=== PATIENT | male | born 1990 | race African-American/Black ===

== ENCOUNTER 2025-01-30 12:06 | Emergency (ER) | payer MEDICAID ==
[~2025-01-30] VITALS: Ht 177.8 cm; Wt 72.0 kg
[~2025-01-30 12:06] MED LIST: BENZ0.5T6; CLON0.1T; DIAZ10TA66; LAMO150T2; METO-281; PAROXETINE; QUET100T38; TRAZ-227; ZIPR40CA8; [UNRECOGNIZED DRUG - CODE]
--- NOTE | 2025-01-30 13:11 | ED.PDOC ---
GI ASSESSMENT HPI Comments 34 year old male presents to the ED with a chief compliant of vomiting onset last night. Per legal guardian, patient is currently at a Boarding Care facility, noticed patient began shoving his hand in his mouth causing him to vomit. Guardian states mother was concerned, requested patient to be brought to ED. Mother told guardian patient experienced similar episode a few years ago, had swallowed an orange. Patient is nonverbal, baseline according to guardian. No other symptoms or modifying factors present at this time. Chief Complaint: Nausea/Vomiting Time Seen by MD: 13:00 Reviewed Notes: Medications, Allergies Allergies: Coded Allergies: NO KNOWN ALLERGIES (Unverified , 06/20/10) Home Meds Reported Medications Diazepam (Valium) 10 Mg Tab, BID 06/20/10 Trazodone Hcl (Trazodone Hcl) 50 Mg Tab, HS 06/20/10 Clorazepate Dipotassium (Tranxene T) 3.75 Mg Tab, TID 06/20/10 Quetiapine Fumerate (Seroquel) 100 Mg Tab, BID 06/20/10 Metoclopramide Hcl (Reglan) 10 Mg Tab, QID 06/20/10 [Paroxetine] 10 MG No Conflict Check, BID 06/20/10 Lamotrigine (Lamictal) 150 Mg Tab, BID 06/20/10 Ziprasidone Hydrochloride (Geodon) 40 Mg Cap, BID 06/20/10 Benztropine Mesylate (Cogentin) 0.5 Mg Tb, BID 06/20/10 Clonidine Hydrochloride (Clonidine Hcl) 0.1 Mg Tab, BID 06/20/10 Information Source: Legal Guardian Mode of Arrival: Wheelchair Timing: Days Duration: Since onset Prehospital treatment: None Quality: None Severity: Moderate Recent: None Recent Hx of: None Associated sign and symptoms: Nausea, Vomiting Past Medical History Surgical History: Denies all surgeries Family History Family History: Reviewed,noncontributory to illness, No family hx of Cancer, No family hx of DM, No family hx of Heart kamari, No family hx of HTN, No family hx ofKidney kamari, No family hx of Liver kamari, No family hx of Lung kamari, No family hx of Stroke Social History Smoker: Non-Smoker Alcohol: Denies ETOH Use Drugs: Denies Drug Use Lives In: Home Constitutional: denies: chills, diaphoresis, fatigue, fever, malaise, sweats, weakness, others EENTM: denies: blurred vision, double vision, ear bleeding, ear discharge, ear drainage, ear pain, ear ringing, eye pain, eye redness, hearing loss, mouth pain, mouth swelling, nasal discharge, nose bleeding, nose congestion, nose pain, photophobia, tearing, throat pain, throat swelling, voice changes, others Respiratory: denies: cough, hemoptysis, orthopnea, SOB at rest, shortness of breath, SOB with excertion, stridor, wheezing, others Cardiovascular: denies: chest pain, dizzy spells, diaphoresis, Dyspnea on exertion, edema, irregular heart beat, left arm pain, lightheadedness, palpi tations, PND, syncope, others Gastrointestinal: reports: nausea, vomiting; denies: abdomen distended, abdominal pain, blood streaked bowels, constipated, diarrhea, dysphagia, difficulty swallowing, hematemesis, melena, poor appetite, poor fluid intake, rectal bleeding, rectal pain, others Genitourinary: denies: burning, dysuria, flank pain, frequency, hematuria, incontinence, penile discharge, penile sore, pain, testicle pain, testicle swelling, urgency, others Neurological: denies: dizziness, fainting, headache, left sided numbness, left sided weakness, numbness, paresthesia, pre-existing deficit, right sided numbness, right sided weakness, seizure, speech problems, tingling, tremors, weakness, others Musculoskeletal: denies: back pain, gout, joint pain, joint swelling, muscle pain, muscle stiffness, neck pain, others Integumetry: denies: bruises, change in color, change in hair/nails, dryness, laceration, lesions, lumps, rash, wounds, others Allergic/Immunocompromised: denies: Difficulty Healing, Frequent Infections, Hives, Itching, others Hematologic/Lymphatic: denies: anemia, blood clots, easy bleeding, easy bruising, swollen glands, others Endocrine: denies: excessive hunger, excessive sweating, excessive thirst, excessive urination, flushing, intolerance to cold, intolerance to heat, unexpla ined weight gain, unexplained weight loss, others Psychiatric: denies: anxiety, bipolar disorder, depression, hopeless, panic disorder, schizophrenia, sleepless, suicidal, others All Other Systems: Reviewed and Negative Physical Exam General Appearance: Normal HEENT: Normal ENT Inspection, Pharynx Normal, TMs Normal Neck: Full Range of Motion, Non-Tender, Normal, Normal Inspection Respiratory: Chest Non-Tender, Lungs Clear, No Accessory Muscle Use, No Respiratory Distress, Normal Breath Sounds Cardiovascular: No Edema, No JVD, No Murmur, No Gallop, Normal Peripheral Pulses, Regular Rate/Rhythm Breast Exam: Deferred Gastrointestinal: No Organomegaly, Non Tender, No Pulsatile Mass, Normal Bowel Sounds, Soft Genitalia: Deferred Pelvic: Deferred Rectal: Deferred Extremities: No calf tenderness, Normal capillary refill, Normal inspection, Normal range of motion, Non-tender, No pedal edema Musculoskeletal : Apperance: Normal Neurologic: Alert, elementary math tutor II-XII nml as Tested, No Motor Deficits, Normal Affect, Normal Mood, No Sensory Deficits Cerebellar Function: Normal Reflexes: Normal Skin: Dry, Normal Color, Warm Lymphatic: No Adenopathy Was a procedure done? Was a procedure done?: No GI differential Dx Differential Diagnosis: Other (dysphagia) X-Ray, Labs, Meds, VS Vital Signs Date Time Temp Pulse Resp B/P (MAP) Pulse Ox O2 Delivery O2 Flow Rate FiO2 01/30/25 12:08 97.0 106 15 133/100 98 97.0 [place] [id number] Ph: [phone] DIAGNOSTIC IMAGING Diagnostic Imaging Report : [id number] Signed PATIENT: REYNOLD MARTIN ACCT: [id number] UNIT: [id number] : 1990 LOC: ER ROOM / BED: / AGE / SEX: 34 / M ADM STATUS: REG ER SERVICE [id number] ORDERING PHYSICIAN: ZEHRA RODRIGUEZ MD PROCEDURE(s): CXRP - CHEST PORTABLE REASON: throat pain ORDER NUMBER(s): [id number], ACCESSION NUMBER(s): [id number] INDICATION: throat pain TECHNIQUE: Frontal view of the chest. COMPARISON: None FINDINGS: Battery pack overlying the left upper chest . The heart and mediastinal contours are grossly unremarkable. There is no evidence of pleural disease. The lungs are clear. The bony structures of the chest are intact without fracture. IMPRESSION: 1. No evidence of acute disease. ATED BY: FACUNDO KERN MD DICTATED DATE/TIME: 01/30/251335 SIGNED BY: FACUNDO KERN MD SIGNED DATE/TIME: 01/30/25 133 CC: Time of 1ST Reevaluation: 13:30 Reevaluation 1ST: Unchanged Patient Education/Counseling: Other Family Education/Counseling: Diagnosis, Treatment, Prognosis SEPSIS Sepsis Screen Date sepsis recognized/suspect: Jan 30, 2025 Time Sepsis recognized/suspect: 1210 Recent Procedure: No Respiratory Rate >20: No Heart Rate >90: Yes Temp<36 C (96.8 F) or >38.3 C: No SBP <90 or MAP <65 mmHG: No New Acute Mental Status Change: No Is the patient on CPAP, BIPAP,: No Physician Orders Chest Portable (01/30/25 13:07) Vital Signs Date Time Temp Pulse Resp B/P (MAP) Pulse Ox O2 Delivery O2 Flow Rate FiO2 01/30/25 12:08 97.0 106 15 133/100 98 97.0 Departure 1 Departure Time of Disposition: 14:34 (Patient is tolerating p.o.. We will discharge patient home with outpatient follow up) Impression: Primary Impression: Acute pharyngitis Disposition: HOME / SELF CARE / HOMELESS Condition: Stable Additional Instructions: Your x-rays were benign today. You should follow up with your regular doctor. Discharged With: Self Critical Care Note Critical Care Time?: No Stability Stability form required: No Heart Score Heart Score: Heart Score Response (Comments) Value History N/A 0 EKG N/A 0 Age N/A 0 Risk Factors N/A 0 Troponin N/A 0 Total 0 I personally scribed for ZEHRA RODRIGUEZ MD ([email or web address]) on 01/30/25 at 13:11. Electronically submitted by Evelyne Hess ([email or web address]). I personally scribed for ZEHRA RODRIGUEZ MD ([email or web address]) on 01/30/25 at 13:44. Electronically submitted by Evelyne Hess ([email or web address]). ZEHRA RODRIGUEZ MD Jan 30, 2025 13:11
--- NOTE | 2025-01-30 13:38 | DVH ---
INDICATION: throat pain TECHNIQUE: Frontal view of the chest. COMPARISON: None FINDINGS: Battery pack overlying the left upper chest . The heart and mediastinal contours are grossly unremark able. There is no evidence of pleural disease. The lungs are clear. The bony structures of the ch est are intact without fracture. IMPRESSION: 1. No evidence of acute disease.
[2025-01-30 14:35] VITALS: BP 139/85; PULSE 111; RESP 20; TEMP 97.7; O2SAT 96
[2025-01-30] MEDS: MAALOX PLUS or MAALOX 30 ML PO ONE (15:03)
== END 2025-01-30 15:04 | disposition home or self-care (01) ==
LOC: ER 12:06
DX: J02.9 Acute pharyngitis, unspecified (principal)
CPT/HCPCS: 71045